=== PATIENT | male | born 1950 | race Caucasian/White ===

== ENCOUNTER 2025-07-03 16:26 | Inpatient (IN) ==
[2025-07-03 17:20] LABS: Hematocrit (blood only) 44.7 % (42.0-52.0); Hemoglobin 15.3 g/dL (14.0-18.0); Immature Granulocytes # (auto) 0.06 K/uL (0.01-0.20); Immature Granulocytes % (auto) 0.5 %; Mean Corpuscular Hemoglobin 29.5 pg (25.0-34.0); Mean Corpuscular Volume 86.3 fL (80.0-100.0); Platelet Count 262 K/uL (130-400); RDW Standard Deviation 44.5 fL (36.4-46.3); Red Blood Count 5.18 M/uL (4.70-6.10); White Blood Count 13.14 K/ul (4.8-10.8)
[2025-07-03 17:36] LABS: Alanine Aminotransferase 12.0 U/L (7-52); Albumin Globulin Ratio 1.3 (0.9-2); Albumin Level 4.0 gm/dl (3.4-5.0); Alkaline Phosphatase 78.0 U/L (34-104); Anion Gap 7.0 (3-11); Bilirubin,Total 0.8 mg/dl (0.2-1.0); Blood Urea Nitrogen 14.0 mg/dl (6-23); Calcium 9.6 mg/dl (8.6-10.3); Carbon Dioxide 27.0 mmol/L (21-32); Chloride 100.0 mmol/L (98-107); Creatinine Clr Calc Pharmacy 79.4 ml/min; Globulin 3.2 gm/dl (2.5-4.0); Glucose 88.0 mg/dl (70-99(Fasting)); Magnesium 1.7 mg/dl (1.7-2.4); Potassium 4.0 mmol/L (3.5-5.1); Sodium 134.0 mmol/L (136-145); Total Protein 7.2 gm/dl (6.0-8.3)
[2025-07-03 17:43] LABS: Appearance Urine Clear (Clear); Glucose Urine UA Negative (Negative)
[2025-07-03 17:51] LABS: Thyroid Stimulating Hormone 1.923 uIu/ml (0.300-4.500)
--- NOTE | 2025-07-03 18:11 | Emergency Department Note ---
History of Present Illness General Chief complaint: Weakness Stated complaint: FALLS, WEAKNESS Time Seen by Provider: 07/03/25 17:13 Source: patient and family Mode of arrival: EMS Limitations: physical limitation History of Present Illness Maximum Pain Intensity: 5 Home Medications Medication Instructions Recorded Confirmed Type lisinopril 5 mg tablet 5 mg PO QAM 12/16/18 06/26/23 History fexofenadine 180 mg tablet 180 mg PO QAM 02/24/19 06/26/23 History (Janette Allergy) sertraline 100 mg tablet 200 mg PO QAM 02/24/19 06/26/23 History simvastatin 80 mg tablet 40 mg PO QPM 02/24/19 06/26/23 History buspirone 15 mg tablet 15 mg PO TID 12/04/19 06/26/23 History ibuprofen 200 mg tablet 600 mg PO Q6H PRN Pain 03/27/20 06/26/23 History aspirin 81 mg tablet,delayed 81 mg PO DAILY 12/31/22 06/26/23 History release Allergies Allergy/AdvReac Type Severity Reaction Status Date / Time amoxicillin [From Augmentin] Allergy Intermediate Hives Verified 06/26/23 15:37 clavulanic acid Allergy Intermediate Hives Verified 06/26/23 15:37 [From Augmentin] hydrochlorothiazide Allergy Intermediate Hives Uncoded 06/26/23 15:37 Past Med/Surg History Problem List (Updated 07/03/25 @ 23:23 by Yfn Johnson MD) Dehydration (Acute) Hypertension Chronic lumbar pain Depression Memory changes Cervical cord myelomalacia Recurrent falls while walking (Acute) Dizziness on standing Medical History Left-sided weakness Surgical History History of neck surgery Social History Smoking Status: Former smoker Tobacco Type: Cigarettes Hx Alcohol Use: No Preferred Language: [place] Island[place] marital status: / current occupational status: retired Feels Safe at Home: Yes Physical Exam Vital Signs Vital Signs - 24 hr 07/03/25 16:51 07/03/25 16:56 07/03/25 17:22 Temperature 36.7 C Temperature Source Oral Pulse Rate 88 Pulse Rate [Apical] Respiratory Rate 18 Respiratory Effort / Characteristics Non-Labored Spontaneous Respiratory Depth Normal Respiratory Pattern Regular Blood Pressure 155/88 H Blood Pressure [Right Arm] Blood Pressure Mean 110 Blood Pressure Mean [Right Arm] Blood Pressure Position Lying Pulse Oximetry 98 98 96 Oxygen Delivery Method Room Air Room Air Room Air Sepsis Recent Fever Within 48 Hours No Sepsis New/Unexplained Change in Mental Status N/A Sepsis Action Taken by Nursing No Action Required 07/03/25 17:37 07/03/25 18:00 07/03/25 20:00 Temperature Temperature Source Pulse Rate 61 Pulse Rate [Apical] 63 60 Respiratory Rate 18 20 Respiratory Effort / Characteristics Respiratory Depth Respiratory Pattern Blood Pressure Blood Pressure [Right Arm] 159/87 H 153/80 H Blood Pressure Mean Blood Pressure Mean [Right Arm] 111 104 Blood Pressure Position Pulse Oximetry 97 98 Oxygen Delivery Method Room Air Room Air Sepsis Recent Fever Within 48 Hours Sepsis New/Unexplained Change in Mental Status Sepsis Action Taken by Nursing 07/03/25 21:46 07/03/25 22:16 Temperature Temperature Source Pulse Rate 58 L Pulse Rate [Apical] 71 Respiratory Rate 20 Respiratory Effort / Characteristics Respiratory Depth Respiratory Pattern Blood Pressure Blood Pressure [Right Arm] 103/66 Blood Pressure Mean Blood Pressure Mean [Right Arm] 78 Blood Pressure Position Pulse Oximetry 98 Oxygen Delivery Method Room Air Sepsis Recent Fever Within 48 Hours Sepsis New/Unexplained Change in Mental Status Sepsis Action Taken by Nursing See below Constitutional WD/WN, vitals as above Eyes PERRL, conjunctivae normal, anicteric sclerae ENMT external ear and nose normal, oropharynx normal Neck trachea midline, no thyromegaly Respiratory normal respiratory effort, lungs clear to auscultation Cardiovascular RRR, no murmur, no edema Gastrointestinal (Abdomen) normal bowel sounds, soft, nontender, no hepatosplenomegaly Musculoskeletal no cyanosis or clubbing, extremities motor strength 5/5 Skin no rashes, warm and dry Neurologic 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 Home Medications Current Medication List: was personally reviewed by me Laboratory Data Attestation: I reviewed the patient's lab results. 07/03/25 16:46 07/03/25 16:46 Lab Results 07/03/25 07/03/25 Range/Units 16:46 18:32 WBC 13.14 H (4.8-10.8) K/ul RBC 5.18 (4.70-6.10) M/uL Hgb 15.3 (14.0-18.0) g/dL Hct 44.7 (42.0-52.0) % MCV 86.3 (80.0-100.0) fL MCH 29.5 (25.0-34.0) pg MCHC 34.2 (32.0-36.0) g/dL RDW Std Deviation 44.5 (36.4-46.3) fL RDW Coeff of Graciela 14.0 (11.5-14.5) % Plt Count 262 (130-400) K/uL MPV 8.8 L (9.4-12.4) fL Immature Gran % (Auto) 0.5 % Neut % (Auto) 82.5 % Lymph % (Auto) 7.8 % Todd % (Auto) 7.8 % Eos % (Auto) 0.9 % Baso % (Auto) 0.5 % Neut # (Auto) 10.84 H (1.40-6.50) K/uL Lymph # (Auto) 1.02 L (1.20-3.40) K/uL Todd # (Auto) 1.03 H (0.11-0.59) K/uL Eos # (Auto) 0.12 (0.00-0.50) K/uL Baso # (Auto) 0.07 (0.00-0.20) K/uL Immature Gran # (Auto) 0.06 (0.01-0.20) K/uL Sodium 134 L (136-145) mmol/L Potassium 4.0 (3.5-5.1) mmol/L Chloride 100 (98-107) mmol/L Carbon Dioxide 27 (21-32) mmol/L Anion Gap 7 (3-11) BUN 14 (6-23) mg/dl Creatinine 0.83 (0.6-1.4) mg/dl Est Cr Clr Drug Dosing 79.4 ml/min eGFR 91.27 BUN/Creatinine Ratio 16.9 (10-20) Glucose 88 (70-99(Fasting)) mg/dl Calcium 9.6 (8.6-10.3) mg/dl Magnesium 1.7 (1.7-2.4) mg/dl Total Bilirubin 0.8 (0.2-1.0) mg/dl AST 15 (13-39) U/L ALT 12 (7-52) U/L Alkaline Phosphatase 78 (34-104) U/L Total Protein 7.2 (6.0-8.3) gm/dl Albumin 4.0 (3.4-5.0) gm/dl Globulin 3.2 (2.5-4.0) gm/dl Albumin/Globulin Ratio 1.3 (0.9-2) TSH 1.923 (0.300-4.500) uIu/ml Urine Color Yellow Urine Appearance Clear (Clear) Urine pH 5.5 (4.5-7.5) Ur Specific Tarpley 1.023 (1.000-1.030) Urine Protein Negative (Negative) Urine Glucose (UA) Negative (Negative) Urine Ketones Trace H (Negative) Urine Blood Negative (Negative) Urine Nitrite Negative (Negative) Urine Bilirubin Negative (Negative) Urine Urobilinogen Negative (Negative) Ur Leukocyte Esterase Negative (Negative) Urine Comment Adenovirus (PCR) Not Detected (NotDetected) B. pertussis DNA (PCR) Not Detected (NotDetected) B.parapertussis DNA PCR Not Detected (NotDetected) C. pneumoniae DNA (PCR) Not Detected (NotDetected) Coronavirus OC43 (PCR) Not Detected (NotDetected) Coronavirus HKU1 (PCR) Not Detected (NotDetected) Coronavirus 229E (PCR) Not Detected (NotDetected) SARS-CoV-2 (PCR) Not Detected (NotDetected) Coronavirus NL63 (PCR) Not Detected (NotDetected) Human Metapneumovir PCR Not Detected (NotDetected) Influenza Type A (PCR) Not Detected (NotDetected) Influenza Type B (PCR) Not Detected (NotDetected) M. pneumoniae (PCR) Not Detected (NotDetected) Parainfluenza 1 (PCR) Not Detected (NotDetected) Parainfluenza 2 (PCR) Not Detected (NotDetected) Parainfluenza 3 (PCR) Not Detected (NotDetected) Parainfluenza 4 (PCR) Not Detected (NotDetected) RSV (PCR) Not Detected (NotDetected) Entero/Rhino (PCR) Not Detected (NotDetected) Imaging Data Radiologist's Impression: Chest X-Ray 07/03/25 17:11 Single portable view of the chest Comparison made to prior exam dated 06/26/2023 Impression: No acute pulmonary pathology Remote nonunited left proximal humeral fracture Electronically signed by Donnie Vasquez 07-03-2025 9:[address] 07/03/25 18:05 CT of cervical spine without contrast Technique: Noncontrast axial images of the cervical spine. Coronal and sagittal reformatted images made available for review Comparison made to prior exam dated 12/31/2022 Findings: Stable postoperative changes posterior laminectomies C4-C6. No acute fractures or dislocations. Multilevel cervical spondylopathy resulting in varying degrees of canal and foraminal stenosis. Impression No acute osseous pathology Stable postoperative changes C4-C6 posterior laminectomies Multilevel cervical spondylopathy Electronically signed by Donnie Vasquez 07-03-2025 8:[address] 07/03/25 18:05 Clinical History: Multiple falls Technique: Axial computed tomography images were obtained of the brain without intravenous contrast. Findings: There is diffuse cerebral atrophy, within expected limits for the patient's age. Areas of decreased attenuation are seen within the periventricular white matter, likely representing chronic small vessel ischemic disease. There is no definite sign of acute or old infarction. No intracranial hemorrhage is evident. No definite mass lesion is seen on this noncontrast examination. There is no midline shift or other form of herniation. No hydrocephalus is seen. No fracture is identified. The orbits and the visualized paranasal sinuses appear unremarkable. The mastoid air cells appear clear. Impression: 1. Cerebral atrophy and chronic small vessel ischemic disease 2. Otherwise unremarkable noncontrast CT of the brain Electronically signed by Mohit Flowers 07-03-2025 7:[address] 07/03/25 20:47 Exam(s): CT CHEST With Contrast IV Amt: 93 cc opti 320 EXAM: CT Chest With Intravenous Contrast CLINICAL HISTORY: Reason for exam: Possible pneumonia. TECHNIQUE: Axial computed tomography images of the chest with intravenous contrast. CTDI is 25.85 mGy and DLP is 839.58 mGy-cm. Automated exposure control was utilized for the study. A dose lowering technique was utilized adhering to the principles of ALARA. CONTRAST: Patient received 93 cc opti 320 of IV contrast COMPARISON: No relevant prior studies available. FINDINGS: Lungs: Unremarkable. No mass. No consolidation. Pleural space: Unremarkable. No significant effusion. No pneumothorax. Heart: Unremarkable. No cardiomegaly. No significant pericardial effusion. No significant coronary artery calcifications. Bones/joints: Unremarkable. No acute fracture. Soft tissues: Unremarkable. Vasculature: Unremarkable. No thoracic aortic aneurysm. Lymph nodes: Unremarkable. No enlarged lymph nodes. IMPRESSION: No acute chest findings. Electronically signed by: Harsha Ellsworth MD 07/03/25 23:08 PM [facility] Narrative Patient is a 75-year-old male presents for generalized weakness and frequent falls. His caregiver also mentions that he has been more irritable and aggressive at home. No reported head injury from his fall. He does report some right-sided neck pain but is unclear if this is his chronic pain from prior surgery. His caregiver also reports that he is urine has been more foul- smelling and there may be concerned about a UTI. Lab work was ordered and reviewed here today. Mild leukocytosis noted. CMP nonconcerning with significant metabolic abnormality. UA shows no evidence of infection. Small amount of ketones noted. Chest x-ray and CT of the chest were ordered to rule out pneumonia. No obvious findings on the chest noted. Viral panel negative. No obvious source of infection or indication for antibiotics at this time. Leukocytosis likely secondary to dehydration. Because of the increased frequency of his falls I do recommend admission for PT/OT evaluation in the setting of his chronic physical limitations from his prior stroke. Would also recommend IV hydration. Meets criteria for observation today. Impression & Plan Recurrent falls while walking, Dehydration Discharge Plan Visit Data Chief Complaint: Weakness Stated Complaint: FALLS, WEAKNESS ED Provider: Yfn Johnson Discharge Problem: Recurrent falls while walking, Dehydration Patient Disposition: Admitted As Inpatient Condition: Good Forms Stand Alone Forms: My [facility], Important Visit Information Prescriptions Prescriptions: No Action buspirone 15 mg tablet 15 mg PO TID lisinopril 5 mg Tablet 5 mg PO QAM sertraline 100 mg Tablet 200 mg PO QAM fexofenadine [Janette Allergy] 180 mg Tablet 180 mg PO QAM simvastatin 80 mg Tablet 40 mg PO QPM Rx Instructions: 1/2 TABLET DOSE ibuprofen 200 mg Tablet 600 mg PO Q6H PRN (Reason: Pain) aspirin 81 mg Tablet,Delayed Release (Dr/Ec) 81 mg PO DAILY Referrals Referrals: Mak Blanton MD [Primary Care Provider] -
--- NOTE | 2025-07-03 19:20 | CT Scan Report ---
Clinical History: Multiple falls Technique: Axial computed tomography images were obtained of the brain without intravenous contrast. Findings: There is diffuse cerebral atrophy, within expected limits for the patient's age. Areas of decreased attenuation are seen within the periventricular white matter, likely representing chronic small vessel ischemic disease. There is no definite sign of acute or old infarction. No intracranial hemorrhage is evident. No definite mass lesion is seen on this noncontrast examination. There is no midline shift or other form of herniation. No hydrocephalus is seen. No fracture is identified. The orbits and the visualized paranasal sinuses appear unremarkable. The mastoid air cells appear clear. Impression: 1. Cerebral atrophy and chronic small vessel ischemic disease 2. Otherwise unremarkable noncontrast CT of the brain Electronically signed by Mohit Flowers 07-03-2025 7:20 PM
[2025-07-03 19:48] LABS: Chlamydia pneumoniae PCR Not Detected (NotDetected); Coronavirus 229E PCR Not Detected (NotDetected); Coronavirus CoV-2 (COVID19)PCR Not Detected (NotDetected); Coronavirus HKU1 PCR Not Detected (NotDetected); Coronavirus NL63 PCR Not Detected (NotDetected); Coronavirus OC43PCR Not Detected (NotDetected); Human Metapneumovirus PCR Not Detected (NotDetected); Parainfluenza Virus 1 PCR Not Detected (NotDetected); Parainfluenza Virus 2 PCR Not Detected (NotDetected); Parainfluenza Virus 3 PCR Not Detected (NotDetected); Parainfluenza Virus 4 PCR Not Detected (NotDetected); Respiratory Syncytial VirusPCR Not Detected (NotDetected); Rhinovirus/Enterovirus PCR Not Detected (NotDetected)
--- NOTE | 2025-07-03 20:35 | CT Scan Report ---
CT of cervical spine without contrast Technique: Noncontrast axial images of the cervical spine. Coronal and sagittal reformatted images made available for review Comparison made to prior exam dated 12/31/2022 Findings: Stable postoperative changes posterior laminectomies C4-C6. No acute fractures or dislocations. Multilevel cervical spondylopathy resulting in varying degrees of canal and foraminal stenosis. Impression No acute osseous pathology Stable postoperative changes C4-C6 posterior laminectomies Multilevel cervical spondylopathy Electronically signed by Donnie Vasquez 07-03-2025 8:34 PM
--- NOTE | 2025-07-03 21:02 | XRay Report ---
Single portable view of the chest Comparison made to prior exam dated 06/26/2023 Impression: No acute pulmonary pathology Remote nonunited left proximal humeral fracture Electronically signed by Donnie Vasquez 07-03-2025 9:02 PM
[2025-07-03] MEDS: OPTIRAY 320 100ml IV ONE (22:26)
--- NOTE | 2025-07-03 23:09 | CT Scan Report ---
Exam(s): CT CHEST With Contrast IV Amt: 93 cc opti 320 EXAM: CT Chest With Intravenous Contrast CLINICAL HISTORY: Reason for exam: Possible pneumonia. TECHNIQUE: Axial computed tomography images of the chest with intravenous contrast. CTDI is 25.85 mGy and DLP is 839.58 mGy-cm. Automated exposure control was utilized for the study. A dose lowering technique was utilized adhering to the principles of ALARA. CONTRAST: Patient received 93 cc opti 320 of IV contrast COMPARISON: No relevant prior studies available. FINDINGS: Lungs: Unremarkable. No mass. No consolidation. Pleural space: Unremarkable. No significant effusion. No pneumothorax. Heart: Unremarkable. No cardiomegaly. No significant pericardial effusion. No significant coronary artery calcifications. Bones/joints: Unremarkable. No acute fracture. Soft tissues: Unremarkable. Vasculature: Unremarkable. No thoracic aortic aneurysm. Lymph nodes: Unremarkable. No enlarged lymph nodes. IMPRESSION: No acute chest findings. Electronically signed by: Harsha Ellsworth MD 07/03/25 23:08 PM
[2025-07-03] MEDS: D5W AND LACTATED RINGERS 1,000 ML IV SCH (23:29)
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
[2025-07-04] MEDS ORDERED: ACETAMINOPHEN 325 MG TAB PO PRN (02:11)
[2025-07-04] MEDS ORDERED: ONDANSETRON INJ 2 MG/ML 2 ML VIAL IV PRN (02:11)
[2025-07-04] MEDS: LACTATED RINGER'S 1,000 ML IV SCH (03:07)
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
[2025-07-04] MEDS: DOCUSATE SODIUM 100 MG CAP PO PRN (08:46)
[2025-07-04] MEDS: SERTRALINE HCL 100 MG TABLET PO SCH (08:46)
[2025-07-04] MEDS: busPIRone 15 MG TAB PO SCH (08:46)
[2025-07-04] MEDS: FEXOFENADINE HCL 180 MG TAB PO SCH (08:46)
[2025-07-04] MEDS: ASPIRIN 81 MG ECTAB PO SCH (08:46)
[2025-07-04] MEDS: SIMVASTATIN 40 MG TAB PO SCH (21:56)
[2025-07-04] MEDS: ENOXAPARIN INJ 40 MG/0.4 ML SYR SQ SCH (21:56)
[2025-07-04] MEDS: IBUPROFEN 600 MG TAB PO PRN (21:59)
[2025-07-05 07:21] LABS: Hematocrit (blood only) 41.6 % (42.0-52.0); Hemoglobin 13.8 g/dL (14.0-18.0); Mean Corpuscular Hemoglobin 29.0 pg (25.0-34.0); Mean Corpuscular Volume 87.4 fL (80.0-100.0); Platelet Count 215 K/uL (130-400); RDW Standard Deviation 45.2 fL (36.4-46.3); Red Blood Count 4.76 M/uL (4.70-6.10); White Blood Count 8.48 K/ul (4.8-10.8)
[2025-07-05 07:36] LABS: Anion Gap 7.0 (3-11); Blood Urea Nitrogen 14.0 mg/dl (6-23); Calcium 8.9 mg/dl (8.6-10.3); Carbon Dioxide 26.0 mmol/L (21-32); Chloride 102.0 mmol/L (98-107); Creatinine Clr Calc Pharmacy 79.4 ml/min; Glucose 93.0 mg/dl (70-99(Fasting)); Potassium 4.1 mmol/L (3.5-5.1); Sodium 135.0 mmol/L (136-145)
[2025-07-05] MEDS: MECLIZINE 12.5 MG TAB PO ONE (10:14)
[2025-07-05] MEDS: INFLUENZA VACC TS2025-26(65y+)/PF (IIV3) 0.5mL Syr IM ONE (10:31)
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
[2025-07-05] MEDS: FLUTICASONE PROPIONATE NA SPR 16 GM BTL SCH (14:42)
[2025-07-05] MEDS ORDERED: ENOXAPARIN INJ 40 MG/0.4 ML SYR SQ SCH (21:00)
[2025-07-06 04:49] LABS: Anion Gap 4.0 (3-11); Blood Urea Nitrogen 25.0 mg/dl (6-23); Calcium 9.1 mg/dl (8.6-10.3); Carbon Dioxide 27.0 mmol/L (21-32); Chloride 103.0 mmol/L (98-107); Creatinine Clr Calc Pharmacy 58.8 ml/min; Glucose 100.0 mg/dl (70-99(Fasting)); Potassium 4.3 mmol/L (3.5-5.1); Sodium 134.0 mmol/L (136-145)
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
[2025-07-06] MEDS: FAMOTIDINE 20 MG TAB PO SCH (09:47)
--- NOTE | 2025-07-06 14:31 | Electrocardiogram Report ---
Test Reason : Blood Pressure : */* mmHG Vent. Rate : 60 BPM Atrial Rate : 60 BPM P-R Int : 126 ms QRS Dur : 88 ms QT Int : 444 ms P-R-T Axes : 6 -19 47 degrees QTcB Int : 444 ms Normal sinus rhythm Normal ECG When compared with ECG of 26-Jun-2023 12:20, Vent. rate has decreased by 36 bpm Borderline criteria for Lateral infarct are no longer Present Confirmed by Clifford Hernández ([id number] on 07/06/2025 2:31:05 PM Referred By: REFERRED SELF Confirmed By: Clifford Hernández
[2025-07-07 07:18] LABS: Creatinine Clr Calc Pharmacy 75.8 ml/min
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
[2025-07-07 11:31] LABS: Hematocrit (blood only) 42.7 % (42.0-52.0); Hemoglobin 14.5 g/dL (14.0-18.0); Immature Granulocytes # (auto) 0.05 K/uL (0.01-0.20); Immature Granulocytes % (auto) 0.6 %; Mean Corpuscular Hemoglobin 29.2 pg (25.0-34.0); Mean Corpuscular Volume 86.1 fL (80.0-100.0); Platelet Count 242 K/uL (130-400); RDW Standard Deviation 44.9 fL (36.4-46.3); Red Blood Count 4.96 M/uL (4.70-6.10); White Blood Count 8.38 K/ul (4.8-10.8)
[2025-07-07 11:34] LABS: Anion Gap 9.0 (3-11); Blood Urea Nitrogen 21.0 mg/dl (6-23); Calcium 9.2 mg/dl (8.6-10.3); Carbon Dioxide 23.0 mmol/L (21-32); Chloride 103.0 mmol/L (98-107); Glucose 96.0 mg/dl (70-99(Fasting)); Potassium 4.3 mmol/L (3.5-5.1); Sodium 135.0 mmol/L (136-145)
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
[2025-07-08] MEDS: MECLIZINE 12.5 MG TAB PO SCH (14:00)
[2025-07-08] MEDS: CALCIUM CARBONATE 500 MG CHEWABLE TAB PO PRN (14:00)
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
[2025-07-09] MEDS: MECLIZINE 12.5 MG TAB PO SCH (20:54)
[2025-07-09 23:13] VITALS: O2SAT 98
[2025-07-10 06:17] LABS: Hematocrit (blood only) 39.5 % (42.0-52.0); Hemoglobin 13.6 g/dL (14.0-18.0); Immature Granulocytes # (auto) 0.03 K/uL (0.01-0.20); Immature Granulocytes % (auto) 0.4 %; Mean Corpuscular Hemoglobin 29.8 pg (25.0-34.0); Mean Corpuscular Volume 86.4 fL (80.0-100.0); Platelet Count 237 K/uL (130-400); RDW Standard Deviation 43.8 fL (36.4-46.3); Red Blood Count 4.57 M/uL (4.70-6.10); White Blood Count 7.80 K/ul (4.8-10.8)
[2025-07-10 06:31] LABS: Anion Gap 5.0 (3-11); Blood Urea Nitrogen 25.0 mg/dl (6-23); Calcium 8.7 mg/dl (8.6-10.3); Carbon Dioxide 27.0 mmol/L (21-32); Chloride 103.0 mmol/L (98-107); Creatinine Clr Calc Pharmacy 67.9 ml/min; Glucose 94.0 mg/dl (70-99(Fasting)); Potassium 4.1 mmol/L (3.5-5.1); Sodium 135.0 mmol/L (136-145)
[2025-07-10 08:19] VITALS: BP 96/57; PULSE 54; RESP 18; TEMP 98.1
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
--- NOTE | 2025-07-14 08:14 | Coding Query ---
CODING QUERY To promote full compliance with coding requirements relating to patient care, provider participation is requested in all cases of mottle lay up operator uncertainty. Please assist us with the question(s) below: Coding Question(s): Please specify below, in your clinical opinion, regarding Frequent Falls/Recurring Falls: ( ) Frequent Falls/Recurring Falls with Unknown Cause ( x ) Frequent Falls/Recurring Falls due to questionable Labyrinthitis vs Vertigo ( ) Frequent Falls/Recurring Falls due to Other: Please Specify Physician's Response(s): Thank you Vikki Henderson Principal Diagnosis: "that condition established after study, to be chiefly responsible for occasioning the admission of the patient to the hospital for care." Co-Existing Principal Diagnosis: "when two or more diagnoses equally meet the criteria for principal diagnosis as determined by the circumstances of admission, diagnostic work up, and/or therapy provided, and the Alphabetic Index, Tabular List, or another coding guideline does not provide sequencing direction, any one of the diagnoses may be sequenced first." "When the physician has documented what appears to be a current diagnosis in the body of the record, but has not included the diagnosis in the final diagnostic statement, the physician should be asked whether the diagnosis should be added." (Source [facility] 2 QTR90. p3-4) KARMA
== END 2025-07-10 12:27 | DRG 149 ==
LOC: SUATTDRO → EDINP 16:26 → ED 16:26 → SUATTDRO 07-04 00:10 → 3E 07-04 13:34 → SUATTDRO 07-06 18:43